=== PATIENT | male | born 1960 | race Caucasian/White ===

== ENCOUNTER 2017-05-15 10:54 | Emergency (ER) | payer SELFPAY ==
[2017-05-15 11:15] VITALS: BP 131/70
--- NOTE | 2017-05-15 11:40 | EDM.PDOC ---
ED HPI GENERAL MEDICAL PROBLEM - General Chief Complaint: Flank Pain Stated Complaint: SEVERE ABD PAINS FROM FALL, [id number] Time Seen by Provider: 05/15/17 11:25 Source of Information: Reports: Patient, RN, RN Notes Reviewed History Limitations: Reports: No Limitations - History of Present Illness INITIAL COMMENTS - FREE TEXT/NARRATIVE: Pt presents to the ER with c/o right rib pain. He states he fell down 2 stairs yesterday and landed on the right side. He states he did not hit his head and he does not have pain anywhere but in the right ribcage. He states it is difficult to breathe. He denies taking anything for the pain. Onset: Sudden Onset Date: 05/14/17 Location: Reports: Chest, Abdomen Quality: Reports: Sharp Severity: Severe Improves with: Reports: None Worsens with: Reports: Breathing, Movement Associated Symptoms: Reports: No Other Symptoms Right Thoracic Pain Score (Numeric/FACES): 9 - Related Data Allergies Allergy/AdvReac Type Severity Reaction Status Date / Time No Known Allergies Allergy Verified 06/27/15 09:27 Home Meds: Home Meds . 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 Cardiovascular History: Reports: None Respiratory History: Reports: None Gastrointestinal History: Reports: None Genitourinary History: Reports: None Musculoskeletal History: Reports: None Neurological History: Reports: None Psychiatric History: Reports: None Endocrine/Metabolic History: Reports: None Hematologic History: Reports: None Immunologic History: Reports: None Oncologic (Cancer) History: Reports: None Dermatologic History: Reports: None - Infectious Disease History Infectious Disease History: Reports: Chicken Pox, Measles, Mumps - Past Surgical History Head Surgeries/Procedures: Reports: None Social & Family History - Family History Family Medical History: Noncontributory - Tobacco Use Smoking Status *Q: Current Every Day Smoker Years of Tobacco use: 40 Packs/Tins Daily: 1 Second Hand Smoke Exposure: No - Caffeine Use Caffeine Use: Reports: Soda - Alcohol Use Days Per Week of Alcohol Use: 1 Number of Drinks Per Day: 12 Total Drinks Per Week: 12 - Recreational Drug Use Recreational Drug Use: No - Living Situation & Occupation Occupation: Employed ED ROS GENERAL - Review of Systems Review Of Systems: ROS reveals no pertinent complaints other than HPI. ED EXAM, GENERAL - Physical Exam Exam: See Below Exam Limited By: No Limitations General Appearance: Alert, WD/WN, Moderate Distress Eye Exam: Bilateral Eye: EOMI, Normal Inspection Ears: Normal External Exam, Hearing Grossly Normal Nose: Normal Inspection Throat/Mouth: Normal Inspection, Normal Voice, No Airway Compromise Head: Atraumatic, Normocephalic Neck: Normal Inspection, Supple, Non-Tender, Full Range of Motion Respiratory/Chest: No Respiratory Distress, No Accessory Muscle Use, Decreased Breath Sounds. No: Chest Non-Tender (tender to the right lateral rib cage) Cardiovascular: Normal Peripheral Pulses, Regular Rate, Rhythm, No Edema, No Gallop, No JVD, No Murmur, No Rub Peripheral Pulses: 2+: Radial (L), Radial (R) GI/Abdominal: Normal Bowel Sounds, Soft, Non-Tender, No Distention (Male) Exam: Deferred Rectal (Males) Exam: Deferred Back Exam: Normal Inspection, Decreased Range of Motion Extremities: Normal Inspection, Non-Tender, No Pedal Edema, Normal Capillary Refill, Limited Range of Motion (difficult to raise right arm) Neurological: Alert, Oriented, CN II-XII Intact, Normal Cognition, Normal Gait, No Motor/Sensory Deficits Psychiatric: Normal Affect, Normal Mood Skin Exam: Warm, Dry, Intact, Normal Color, No Rash, Ecchymosis (slight ecchymosis to the right lateral rib cage) Lymphatic: No Adenopathy Course - Vital Signs Last Recorded V/S: Last Vital Signs Temp 98.5 F 05/15/17 11:14 Pulse 104 H 05/15/17 11:14 Resp 16 05/15/17 11:14 BP 131/70 05/15/17 11:14 Pulse Ox 95 05/15/17 11:14 - Re-Assessments/Exams Free Text/Narrative Re-Assessment/Exam: 05/15/17 11:39 Right ribs and chest xray: no acute findings See rad report 05/15/17 15:08 Departure - Departure Time of Disposition: 13:22 Disposition: Home, Self-Care 01 Condition: Fair Clinical Impression: Chest wall contusion Qualifiers: Encounter type: initial encounter Laterality: right Qualified Code(s): S20.211A - Contusion of right front wall of thorax, initial encounter - Discharge Information Instructions: Chest Contusion, [id number] Forms: ED Department Discharge Additional Instructions: Splint the ribs with movement RX: [facility] Continue to deep breathe and cough as often as possible. Follow up with your primary care facility next week if no improvement.
--- NOTE | 2017-05-15 13:15 | CR ---
Clinical history: 57-year-old male injured right side in fall down steps (2 steps yesterday). Interpretation: PA chest and right rib detail films confirm slight scoliosis. Chronic hypertrophic arthritic changes of the dorsal lumbar spine. No sign of right rib fracture, underlying lung contusion, atelectasis, dependent right pleural effusi on or right-sided pneumothorax i.e. negative exam. Normal cardiac silhouette and mediastinal width. No alveolar edema or dependent effusion. No lung mass, hilar lymphadenopathy or focal lobar pneumonia.
== END 2017-05-15 13:44 | disposition home or self-care (01) ==
LOC: DL.ED 10:54
DX: S20.211A Contusion of right front wall of thorax, initial encounter (principal); F17.210 Nicotine dependence, cigarettes, uncomplicated; W10.8XXA Fall (on) (from) other stairs and steps, initial encounter
CPT/HCPCS: 71101-RT; 99284

== ENCOUNTER 2017-06-26 15:29 | Emergency (ER) | payer OTHER ==
[2017-06-26 15:45] VITALS: BP 119/80
[2017-06-26] MEDS ORDERED: Ketorolac 30 MG/ML SDV IM ONE (18:01)
--- NOTE | 2017-06-26 18:16 | EDM.PDOC ---
"Scribed by Catie Burgos 06/26/17 0883 for Unruly Sherman MD ED HPI GENERAL MEDICAL PROBLEM - General Chief Complaint: Back Pain or Injury Stated Complaint: [id number] BACK AND LEGS TINGLY-CANT HARDLY WALK Time Seen by Provider: 06/26/17 17:10 Source of Information: Reports: Patient, RN, RN Notes Reviewed History Limitations: Reports: No Limitations - History of Present Illness INITIAL COMMENTS - FREE TEXT/NARRATIVE: Patient presents with complaint of back pain resulting from a fall on April. After a couple of weeks the pain disappeared partially, but did not go away. This past week the pain has increased and began radiating down his left leg to his foot and the back of the right buttock and proximal right thigh. Denies loss of bowel or bladder control, saddle area numbness, or motor weakness. Denies any new injury. Duration: Getting Worse Location: Reports: Back Quality: Reports: Ache Severity: Severe Improves with: Reports: None Worsens with: Reports: None Associated Symptoms: Reports: No Other Symptoms Middle Back Pain Score (Numeric/FACES): 8 - Related Data Allergies Allergy/AdvReac Type Severity Reaction Status Date / Time No Known Allergies Allergy Verified 06/27/15 09:27 Home Meds: Home Meds . 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 Cardiovascular History: Reports: None Respiratory History: Reports: None Gastrointestinal History: Reports: None Genitourinary History: Reports: None Musculoskeletal History: Reports: None Neurological History: Reports: None Psychiatric History: Reports: None Endocrine/Metabolic History: Reports: None Hematologic History: Reports: None Immunologic History: Reports: None Oncologic (Cancer) History: Reports: None Dermatologic History: Reports: None - Infectious Disease History Infectious Disease History: Reports: Chicken Pox, Measles, Mumps - Past Surgical History Head Surgeries/Procedures: Reports: None HEENT Surgical History: Reports: Other (See Below) Other HEENT Surgeries/Procedures: surgery on left ear drum Social & Family History - Family History Family Medical History: Noncontributory - Tobacco Use Smoking Status *Q: Current Every Day Smoker Years of Tobacco use: 25 Packs/Tins Daily: 1.5 Second Hand Smoke Exposure: No - Caffeine Use Caffeine Use: Reports: Coffee, Energy Drinks, Soda - Alcohol Use Days Per Week of Alcohol Use: 2 Number of Drinks Per Day: 6 Total Drinks Per Week: 12 - Recreational Drug Use Recreational Drug Use: No - Living Situation & Occupation Occupation: Employed ED ROS GENERAL - Review of Systems Review Of Systems: ROS reveals no pertinent complaints other than HPI. ED EXAM,LOWER BACK PAIN/INJURY - Physical Exam Exam: See Below Exam Limited By: No Limitations General Appearance: Alert, WD/WN, No Apparent Distress Head: Atraumatic, Normocephalic Neck: Normal Inspection, Supple, Non-Tender, Full Range of Motion Respiratory/Chest: No Respiratory Distress Cardiovascular: Regular Rate, Rhythm GI/Abdominal: Normal Bowel Sounds, Soft, Non-Tender, No Distention, No Abnormal Bruit (Male) Exam: Deferred Rectal (Males) Exam: Deferred Back Exam: Decreased Range of Motion, Muscle Spasm (lumbar), Paraspinal Tenderness (lumbar). No: CVA Tenderness (L), CVA Tenderness (R), Vertebral Tenderness Extremities: Normal Inspection, Normal Range of Motion, Non-Tender, No Pedal Edema, Normal Capillary Refill Neurological: Alert, Normal Mood/Affect, Normal Dorsiflexion, CN II-XII Intact, Normal Plantar Flexion, No Motor/Sensory Deficits, Oriented x 3, Difficulty Walking (antalgic gait due to back pain.). No: Saddle Anesthesia Psychiatric: Normal Affect, Normal Mood Skin Exam: Warm, Dry, Intact, Normal Color, No Rash Course - Vital Signs Last Recorded V/S: Last Vital Signs Temp 36.4 C 06/26/17 15:44 Pulse 102 H 06/26/17 15:44 Resp 20 06/26/17 15:44 BP 119/80 06/26/17 15:44 Pulse Ox 97 06/26/17 15:44 - Orders/Labs/Meds Orders: Active Orders 24 hr Category Date Time Status Lumbar Spine 2 or 3V [CR] Urgent Exams 06/26/17 16:59 Taken Meds: Medications Discontinued Medications Generic Name Dose Route Start Last Admin Trade Name Freq PRN Reason Stop Dose Admin Ketorolac Tromethamine 60 mg 06/26/17 18:01 Toradol IM 06/26/17 18:02 ONETIME ONE - Radiology Interpretation Free Text/Narrative:: CLINICAL HISTORY: The patient is a 57 years male; Signs and symptoms; Other: Injury 05/15/17, back pain with tingling radiating to left leg TECHNIQUE: Frontal and lateral views of the lumbar spine. COMPARISON: No relevant prior studies available. FINDINGS: Vertebrae: Mild spinal curvature convex to the right.There are moderate degenerative changes within the spine.There are no suspicious lytic or osteosclerotic lesions. There are no compression fractures. Disc spaces: See above. Soft tissues: Unremarkable. No soft tissue calcifications or radio-opaque foreign bodies. No soft tissue gas. IMPRESSION: No sign of acute lumbar spine injury. Thank you for allowing us to participate in the care of your patient. ANA LAIRD | Final Radiology Report CONFIDENTIALITY STATEMENT This report is intended only for use by the referring physician, and only in accordance with law. If you received this in error, call [phone]. Page 2 of 2 Dictated and Authenticated by: Javon Banks MD 06/26/2017 6:02 PM Central Time ([place] & [place]) Departure - Departure Time of Disposition: 18:02 Disposition: Home, Self-Care 01 Condition: Fair Clinical Impression: Lumbar radiculopathy, acute, Degenerative disc disease, lumbar Degenerative arthritis of lumbar spine Qualifiers: Spinal osteoarthritis complication: unspecified spinal osteoarthritis Qualified Code(s): M47.816 - Spondylosis without myelopathy or radiculopathy, lumbar region - Discharge Information Instructions: Back Pain, Adult, [id number], Lumbosacral Radiculopathy Forms: ED Department Discharge Additional Instructions: RX: Decadron 4mg. RX: Cyclobenzaprine 10mg.(*Do not drive or work while under the influence of this medication). RX: Naprosyn 500mg. Light activity as tolerated. Follow up in clinic next week for check up. - My Orders Last 24 Hours: My Active Orders 06/26/17 16:59 Lumbar Spine 2 or 3V [CR] Urgent - Assessment/Plan Last 24 Hours: My Active Orders 06/26/17 16:59 Lumbar Spine 2 or 3V [CR] Urgent I have read and agree with the documentation that has been completed regarding this visit. By signing this record, I attest that the documentation was completed in my physical presence and is an accurate record of the encounter."
== END 2017-06-26 18:35 | disposition home or self-care (01) ==
LOC: DL.ED 15:29
DX: M51.16 Intervertebral disc disorders with radiculopathy, lumbar region (principal); M47.816 Spondylosis without myelopathy or radiculopathy, lumbar region; F17.210 Nicotine dependence, cigarettes, uncomplicated
CPT/HCPCS: 72100; 96372; 99283; J1885

== ENCOUNTER 2017-11-11 03:18 | Emergency (ER) | payer OTHER ==
[2017-11-11] MEDS ORDERED: Aspirin 81 MG Tab.Chew PO ONE (03:31)
--- NOTE | 2017-11-11 03:40 | EDM.PDOC ---
<Ely Albrecht - Last Filed: 11/11/17 06:40> ED HPI GENERAL MEDICAL PROBLEM - General Chief Complaint: Chest Pain Stated Complaint: CHEST PAIN Time Seen by Provider: 11/11/17 03:25 Source of Information: Reports: Patient History Limitations: Reports: No Limitations - History of Present Illness INITIAL COMMENTS - FREE TEXT/NARRATIVE: ED with c/o sudden onset sharp stabbing left chest pain, worse with movment and deep breathing. Started after eating lunch tonight at work. Rates pain 9/10 at work. Working at [employer] in [place] room, Tonight lifting 5 gallon pails of water in hot, humid environment. Pain reproducible with palpation or movement. No cough, 2 ppd smoker, Left Anterior Chest Pain Score (Numeric/FACES): 9 - Related Data Allergies Allergy/AdvReac Type Severity Reaction Status Date / Time No Known Allergies Allergy Verified 11/11/17 03:21 Home Meds: Home Meds . 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 Cardiovascular History: Reports: None Respiratory History: Reports: None Gastrointestinal History: Reports: None Genitourinary History: Reports: None Musculoskeletal History: Reports: None Neurological History: Reports: None Psychiatric History: Reports: None Endocrine/Metabolic History: Reports: None Hematologic History: Reports: None Immunologic History: Reports: None Oncologic (Cancer) History: Reports: None Dermatologic History: Reports: None - Infectious Disease History Infectious Disease History: Reports: Chicken Pox, Measles, Mumps - Past Surgical History Head Surgeries/Procedures: Reports: None HEENT Surgical History: Reports: Other (See Below) Other HEENT Surgeries/Procedures: surgery on left ear drum Social & Family History - Family History Family Medical History: Noncontributory - Tobacco Use Smoking Status *Q: Current Every Day Smoker Years of Tobacco use: 40 Packs/Tins Daily: 2 Used Tobacco, but Quit: No Second Hand Smoke Exposure: Yes - Caffeine Use Caffeine Use: Reports: Coffee, Soda - Alcohol Use Date of Last Drink: 11/07/17 - Recreational Drug Use Recreational Drug Use: No - Living Situation & Occupation Occupation: Employed ED EXAM, GENERAL - Physical Exam Exam: See Below Exam Limited By: No Limitations General Appearance: Alert, Anxious, Moderate Distress (with movment), Thin Eye Exam: Bilateral Eye: EOMI, PERRL Ears: Normal External Exam, Hearing Loss Nose: Normal Inspection Throat/Mouth: Normal Inspection Head: Atraumatic, Normocephalic Neck: Normal Inspection Respiratory/Chest: No Respiratory Distress, Lungs Clear. No: Rhonchi, Wheezing Cardiovascular: Normal Peripheral Pulses, Regular Rate, Rhythm GI/Abdominal: Normal Bowel Sounds, Soft, Tender (mid epigastric) Back Exam: Vertebral Tenderness (lumbar) Extremities: Normal Inspection, Normal Range of Motion Neurological: Alert, Oriented, Normal Cognition Psychiatric: Normal Affect, Normal Mood Skin Exam: Warm, Dry, Intact, Normal Color EKG INTERPRETATION Rhythm: NSR Course - Vital Signs Last Recorded V/S: Last Vital Signs Temp 98.1 F 11/11/17 07:00 Pulse 87 11/11/17 07:00 Resp 17 11/11/17 07:00 BP 116/75 11/11/17 07:00 Pulse Ox 95 11/11/17 07:00 - Orders/Labs/Meds Orders: Active Orders 24 hr Category Date Time Status EKG 12 Lead [EKG Documentation Completion] [RC] AM Care 11/11/17 07:30 Active EKG Documentation Completion [RC] URGENT Care 11/11/17 03:26 Active Labs: Laboratory Tests 11/11/17 11/11/17 11/11/17 Range/Units 03:33 03:33 03:33 WBC 12.0 H (5.0-10.0) 10^3/uL RBC 5.01 (4.6-6.2) 10^6/uL Hgb 15.9 (14.0-18.0) g/dL Hct 45.9 (40.0-54.0) % MCV 91.6 (80-100) fL MCH 31.7 (27.0-34.0) pg MCHC 34.6 (33.0-35.0) g/dL Plt Count 246 (150-450) 10^3/uL Neut % (Auto) 69.4 (42.2-75.2) % Lymph % (Auto) 18.2 L (20.5-50.1) % [place] % (Auto) 9.8 H (2-8) % Eos % (Auto) 2.2 (1.0-3.0) % Baso % (Auto) 0.4 (0.0-1.0) % PT 9.6 (9.0-12.0) SEC INR 1.0 (0.9-1.2) D-Dimer, Quantitative 193 (0-400) ng/mL Sodium 136 (135-145) mmol/L Potassium 3.8 (3.6-5.0) mmol/L Chloride 104 (101-111) mmol/L Carbon Dioxide 24.0 (21.0-31.0) mmol/L Anion Gap 11.8 BUN 23 H (7-18) mg/dL Creatinine 0.6 (0.6-1.3) mg/dL Est Cr Clr Drug Dosing 153.51 mL/min Estimated GFR (MDRD) > 60 BUN/Creatinine Ratio 38.33 Glucose 125 H (74-105) mg/dL Calcium 9.2 (8.4-10.2) mg/dl Magnesium 1.6 L (1.8-2.5) mg/dL Total Bilirubin 0.7 (0.2-1.0) mg/dL AST 24 (10-42) IU/L ALT 21 (10-60) IU/L Alkaline Phosphatase 92 (42-121) IU/L CK-MB (CK-2) (0.4-4.7) ng/mL Troponin I < 0.02 (0.00-0.02) ng/ml Total Protein 6.6 L (6.7-8.2) g/dl Albumin 3.9 (3.2-5.5) g/dl Globulin 2.7 Albumin/Globulin Ratio 1.44 11/11/17 11/11/17 Range/Units 03:33 07:32 WBC (5.0-10.0) 10^3/uL RBC (4.6-6.2) 10^6/uL Hgb (14.0-18.0) g/dL Hct (40.0-54.0) % MCV (80-100) fL MCH (27.0-34.0) pg MCHC (33.0-35.0) g/dL Plt Count (150-450) 10^3/uL Neut % (Auto) (42.2-75.2) % Lymph % (Auto) (20.5-50.1) % [place] % (Auto) (2-8) % Eos % (Auto) (1.0-3.0) % Baso % (Auto) (0.0-1.0) % PT (9.0-12.0) SEC INR (0.9-1.2) D-Dimer, Quantitative (0-400) ng/mL Sodium (135-145) mmol/L Potassium (3.6-5.0) mmol/L Chloride (101-111) mmol/L Carbon Dioxide (21.0-31.0) mmol/L Anion Gap BUN (7-18) mg/dL Creatinine (0.6-1.3) mg/dL Est Cr Clr Drug Dosing mL/min Estimated GFR (MDRD) BUN/Creatinine Ratio Glucose (74-105) mg/dL Calcium (8.4-10.2) mg/dl Magnesium (1.8-2.5) mg/dL Total Bilirubin (0.2-1.0) mg/dL AST (10-42) IU/L ALT (10-60) IU/L Alkaline Phosphatase (42-121) IU/L CK-MB (CK-2) 1.50 (0.4-4.7) ng/mL Troponin I < 0.02 (0.00-0.02) ng/ml Total Protein (6.7-8.2) g/dl Albumin (3.2-5.5) g/dl Globulin Albumin/Globulin Ratio Meds: Medications Discontinued Medications Generic Name Dose Route Start Last Admin Trade Name Armandq PRN Reason Stop Dose Admin Acetaminophen 650 mg 11/11/17 04:42 11/11/17 04:58 Tylenol PO 11/11/17 04:43 650 mg NOW ONE Administration Aspirin 324 mg 11/11/17 03:31 11/11/17 03:39 Aspirin PO 11/11/17 03:32 324 mg ONETIME ONE Administration Sodium Chloride 1,000 mls @ 150 mls/hr 11/11/17 04:41 11/11/17 05:04 Normal Saline IV 11/11/17 11:20 150 mls/hr .BOLUS ONE Administration - Radiology Interpretation Free Text/Narrative:: CXR - Re-Assessments/Exams Free Text/Narrative Re-Assessment/Exam: 11/11/17 0500, Pain free at rest, sharp with movement. Primary c/o at present that feels warm. Departure - Departure Disposition: Home, Self-Care 01 Clinical Impression: Atypical chest pain Instructions: Chest Wall Pain, [id number], Nonspecific Chest Pain, Easy-to- Read Forms: ED Department Discharge Additional Instructions: Follow up with your primary care facility Return to ER with any further chest pains or problems. <Nilda Fox - Last Filed: 11/11/17 10:54> ED ROS GENERAL - Review of Systems Review Of Systems: ROS reveals no pertinent complaints other than HPI. Departure - Departure Time of Disposition: 08:12 Condition: Fair
[2017-11-11 04:00] LABS: CHLORIDE,CL 104 mmol/L (101-111); SODIUM,NA 136 mmol/L (135-145)
[2017-11-11] MEDS ORDERED: Sodium Chloride 0.9% 1,000 ML IV ONE (04:41)
[2017-11-11] MEDS ORDERED: Acetaminophen 325 MG Tab PO ONE (04:42)
[2017-11-11 07:19] VITALS: BP 116/75
--- NOTE | 2017-11-12 13:00 | EKG ---
11/11/2017 - ANA LAIRD - TIME: 3:27 p.m. FINDINGS: EKG shows sinus tachycardia and left axis deviation. [facility] /[id number]
--- NOTE | 2017-11-12 13:30 | EKG ---
11/11/2017 - ANA LAIRD - TIME: 7:48 a.m. FINDINGS: EKG shows sinus rhythm. There is an incomplete right bundle-branch block. [facility] /[id number]
== END 2017-11-11 09:17 | disposition home or self-care (01) ==
LOC: DL.ED 03:18
DX: R07.89 Other chest pain (principal); F17.210 Nicotine dependence, cigarettes, uncomplicated
CPT/HCPCS: 36415; 71045; 80053; 82553; 83735; 84484; 85025; 85379; 85610; 93005; 96360; 96361; 99285; A9270; J7030

== ENCOUNTER 2021-09-05 06:18 | Day surgery (SDC) | payer MEDICAID, OTHER ==
[~2021-09-05 06:18] MED LIST: Dextrose 5%-0.45% NaCl 1,000 ML IV SCH; Midazolam 1 MG/ML 2 ML SDV ONE; Sodium Chloride 0.9% 10 ML Syringe FLUSH PRN; fentaNYL 100 MCG/2 ML SDV ONE
[2021-09-05] MEDS ORDERED: Midazolam 1 MG/ML 2 ML SDV IV ONE ×7 (06:19→08:21)
[2021-09-05] MEDS ORDERED: fentaNYL 100 MCG/2 ML SDV IV ONE ×3 (06:19→08:12)
[2021-09-05] MEDS ORDERED: Sodium Chloride 0.9% 1,000 ML IV ONE (08:35)
[2021-09-05] MEDS ORDERED: Sodium Chloride 0.9% 10 ML Syringe FLUSH SCH (09:00)
[2021-09-05 10:24] VITALS: BP 115/67; PULSE 71
== END 2021-09-05 10:29 | disposition home or self-care (01) ==
LOC: DL.ENDO 06:18
PROVIDERS: ATTEND Internal Medicine Gastroenterology
DX: Z12.11 Encounter for screening for malignant neoplasm of colon (principal); K57.30 Diverticulosis of large intestine without perforation or abscess without bleeding; M48.02 Spinal stenosis, cervical region
CPT/HCPCS: 45378; J2250; J3010; J7030; J7042

== ENCOUNTER 2023-12-15 18:14 | Emergency (ER) | payer SELFPAY ==
[2023-12-15 20:10] VITALS: BP 127/87; PULSE 105
[2023-12-15] MEDS: Ketorolac 30 MG/ML SDV IM ONE (20:26)
[2023-12-15] MEDS: Take Home: Acetaminophen/oxyCODONE 325-5 MG, 5 Tab Pack PO ONE (20:33)
== END 2023-12-15 20:43 | disposition home or self-care (01) ==
LOC: DL.ED 18:14
DX: S22.41XA Multiple fractures of ribs, right side, initial encounter for closed fracture (principal); J44.9 Chronic obstructive pulmonary disease, unspecified; Z79.899 Other long term (current) drug therapy; X58.XXXA Exposure to other specified factors, initial encounter
CPT/HCPCS: 71101; 96372; 99283; 99284; A9270; J1885